=== PATIENT | male | born 1950 | race Caucasian/White ===

== ENCOUNTER → 2024-10-20 10:44 | Outpatient (REF) | payer MEDICARE, BC, SELFPAY ==
[2024-10-20 11:35] LABS: % Basophils 0.8 % (0-2); % Eosinophils 3.6 % (0-6); % Immature Granulocytes 0.3 % (0-0.5); % Lymphocytes 24.9 % (20.5-51.1); % Monocytes 9.4 % (1.7-9.3); Absolute Basophils 0.1 10^3/uL (0-0.2); Absolute Eosinophils 0.3 10^3/uL (0-0.7); Absolute Lymphocytes 1.8 10^3/uL (1.2-3.4); Absolute Monocytes 0.7 10^3/uL (0.1-0.6); Absolute Neutrophils 4.5 10^3/uL (1.4-6.5); Hematocrit 44.2 % (39.0-52.0); Hemoglobin 14.9 g/dL (13.0-18.0); Mean Corp Hgb Conc. 33.7 g/dL (33.0-37.0); Mean Corpuscular Hgb 31.6 pg (27.0-31.0); Mean Corpuscular Volume 93.6 fL (80.0-94.0); Mean Platelet Volume 9.4 fL (7.4-10.4); Nucleated Red Blood Cells % 0 % (-); Platelet Count 238 10^3/uL (130-400); Red Blood Cell Count 4.72 10^6/uL (4.70-6.10); Red Cell Dist. Width 12.5 % (11.5-14.5); White Blood Cell Count 7.3 10^3/uL (4.8-10.8)
[2024-10-20 11:55] LABS: PT 16.5 Sec (11.4-14.6)
[2024-10-20 12:31] LABS: ALT (SGPT) 24 U/L (0-50); AST (SGOT) 28 U/L (17-59); Alkaline Phosphatase 92 U/L (38-126); Blood Urea Nitrogen 15 mg/dl (9-20); Calcium 9.1 mg/dl (8.4-10.2); Carbon Dioxide 29 mmol/L (22-30); Chloride 105 mmol/L (98-107); Glucose 129 mg/dl (70-99); Magnesium 2.1 mg/dl (1.6-2.3); Potassium 4.5 mmol/L (3.5-5.1); Sodium 144 mmol/L (135-145); Total Bilirubin 0.7 mg/dl (0.2-1.3); eGFR > 60.00
== END ==
LOC: SDSPAT 10:44
PROVIDERS: ATTENDING PHYSICIAN Internal Medicine Cardiovascular Disease; FAMILY PHYSICIAN Family Medicine; OTHER PHYSICIAN Internal Medicine Cardiovascular Disease
DX: I48.19 Other persistent atrial fibrillation (principal)
CPT/HCPCS: 36415; 75572; 80053; 83735; 85025; 85610; 86850; 86900; 86901; 93005; Q9967

== ENCOUNTER 2024-11-04 08:16 | Day surgery (SDC) | payer MEDICARE, BC, SELFPAY ==
[2024-10-20 10:57] VITALS: BMI 34.5
--- NOTE | 2024-10-20 12:29 | HPS.HSE ---
Family Physician
-
Family Physician: Luke Galvan
Chief Complaint
-
Persistent atrial fibrillation.
History of Present Illness
The patient is a 74 year old male presenting today for persistent atrial fibrillation. The patient reports symptoms such as chest discomfort, palpitations, worsening of his baseline dyspnea on exertion, and fatigue likely secondary to this
diagnosis. He previously underwent 3 cardioversions and pulmonary vein isolation in 2013 for his arrhythmia. He is currently on pharmacological therapy with Diltiazem and Metoprolol Tartrate. He reports compliance with Eliquis for oral
anticoagulation. He notes that his current symptoms associated with his arrhythmia greatly interfere with his activities of daily living and overall impact his quality of life. He is interested in pursuing pulmonary vein isolation again for more
definitive arrhythmia management. He denies any current complaints today such as chest pain and shortness of breath at rest, nausea, vomiting, diarrhea, lightheadedness, dizziness, cough, sore throat, or fever.
Medical History
Past Medical History
Past Medical History: Reports Other
Additional Past Medical History:
1. Persistent atrial fibrillation, status post cardioversion x3 and pulmonary vein isolation 2012; pharmacological therapy with Diltiazem and Metoprolol Tartrate and oral anticoagulation with Eliquis.
2. PVCs.
3. Hypertension.
4. Hyperlipidemia.
5. Coronary artery disease, status post PCI with stents x4 2000.
6. COPD with reported asthmatic component.
7. Nocturnal hypoxemia without diagnosis of sleep apnea; on 2L supplemental oxygen.
8. Chronic dyspnea on exertion.
9. Non-insulin dependent diabetes.
10. GERD.
11. Colon polyps.
12. Nephrolithiasis.
13. Cerebral artery aneurysm, followed by neurosurgery.
14. Osteoarthritis, status post left total knee arthroplasty 2021.
15. Skin cancer, status post Mohs.
16. History of recurrent UTIs.
17. Anxiety/depression.
18. Obesity, BMI 34.5.
19. Remote history of heavy tobacco abuse.
Past Surgical History: Reports Other
Additional Past Surgical History:
1. Pulmonary vein isolation.
2. Cardioversion x3.
3. PCI with stent x4.
4. Multiple cardiac catheterizations.
5. Left total knee arthroplasty.
6. Left knee meniscus repair.
7. Bilateral carpal tunnel release.
8. Cholecystectomy.
9. Mohs.
10. Tonsillectomy.
11. [place] teeth extraction.
12. Bilateral cataract extraction.
13. Multiple colonoscopies.
14. Multiple endoscopies.
Social History
Tobacco: Former Smoker (He is a former 2 and 1/2 pack per day cigarette smoker who quit tobacco altogether in 2000. )
Alcohol: None
Personal:
Living: Other (He lives with his in a twin style home. )
Family History
Family History: Not pertinent
Allergies / Home Medications
Allergy/Medication List:
Home medications:
1. Albuterol sulfate 2 puffs inhaled every 4 hours as needed.
2. Eliquis 5 mg p.o. twice a day.
3. Cyanocobalamin 1000 mcg p.o. daily.
4. Diltiazem 240 mg p.o. every evening.
5. Escitalopram 10 mg p.o. daily.
6. Fluticasone propionate 2 spray intranasal daily.
7. Lisinopril 20 mg p.o. daily.
8. Lorazepam 20 mg p.o. daily as needed.
9. Metoprolol Tartrate 12.5 mg p.o. twice a day.
10. Pantoprazole 40 mg p.o. daily.
11. Rosuvastatin 20 mg p.o. at bedtime.
12. Ozempic 0.5 mg subcutaneous on Sundays.
Allergies: No known allergies.
Review of Systems
-
A 12 point ROS was completed and negative except as noted: Yes
Physical Exam
Vital Signs
Blood pressure 152/83. Heart rate 68. Respirations 18. Pulse ox 98% on room air.
Height 5 feet, 10.5 inches. Weight 110.5 kg. BMI 34.5.
Physical Exam
General: Well Developed, Well Nourished and No Apparent Distress
HEENT: NormoCephalic, Moist mucous membranes, Atraumatic and PERRLA
Respiratory: Clear
Cardiac: Irregular Rhythm
GI: Soft, Non Tender, Non Distended and Other (Obese. )
Musculoskeletal: No Edema and Normal Gait & Station
Skin: Warm and Dry
Neuro: AO x 3 and Nonfocal/grossly intact
Laboratory Results
-
DIAGNOSTIC STUDIES as of 10/20/2024: White blood cell count 7.3. Hemoglobin 14.9. Platelet count 238,000. PT 16.5. INR 1.3. Sodium 144. Potassium 4.5. BUN 15. Creatinine 1.1. Glucose 129. Calcium 9.1. Magnesium 2.1. AST 28. ALT 24. Albumin 4.0. Type
and screen O positive.
EKG 10/20/2024: Atrial fibrillation with premature ventricular or aberrantly conducted complexes.
Chest CT 10/20/2024: There is no evidence for thrombus in the left atrial appendage. Separate right superior, right inferior, left superior, and left inferior pulmonary veins draining into the left atrium. No CT evidence for supernumerary pulmonary
vein, common ostium, or anomalous pulmonary venous return. Severe calcific atherosclerotic plaque in the coronary arteries. Mild centrilobular emphysema in the right upper lobe.
Echocardiogram 01/27/2024: Technically suboptimal study. Atleast moderate left atrial lodgment with other chamber sizes normal. Normal left and right ventricular systolic function. Indeterminate diastolic filling pattern. Trace to mild mitral and
pulmonic insufficiency. Trace tricuspid regurgitation.
Impression/Plan
-
IMPRESSION/PLAN:
1. Persistent atrial fibrillation: The patient is in need of pulmonary vein isolation with Dr. Greg Fulton on 11/04/2024. The benefits and risks of the procedure have been explained to the patient. The patient understands these risks and wishes to
proceed. He will not be required to undergo a pre-procedural transesophageal echocardiogram as he has been compliant with his home oral anticoagulation. He is aware to continue his Eliquis up until the night prior to his procedure. He will hold his
Metoprolol Tartrate 48 hours prior. He will take no medications the morning of his ablation.
[2024-11-04] VITALS (12 sets, daily range): BP systolic 131–163; BP diastolic 66–98
[2024-11-04 09:08] LABS: Glucose - Point of Care 144 mg/dl (70-99)
[2024-11-04] MEDS: TYLENOL 1000 MG PO (09:22)
[2024-11-04 11:02] LABS: Glucose - Point of Care 117 mg/dl (70-99)
[2024-11-04 11:05] LABS: ACT-LR - POC 321 Seconds (116-155)
[2024-11-04 11:24] LABS: ACT-LR - POC 284 Seconds (116-155)
[2024-11-04 11:47] LABS: ACT-LR - POC 326 Seconds (116-155)
--- NOTE | 2024-11-04 11:52 | ITS.CL.ABL ---
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
Ablation
Procedure Report:
ELECTROPHYSIOLOGY ABLATION STUDY
DATE:: November 04, 2024�����������������������������REFERRING: Dr. Greg Fulton
INDICATION: Longstanding persistent supraventricular tachycardia in the form of atrial fibrillation.��Prior pulmonary vein isolation with Dr. Avila at [facility] [place] in 2012
HISTORY: See H and P.��As above
ANTIARRHYTHMIC DRUG: Diltiazem only
PRE-PROCEDURE LEN: No interatrial thrombus on intracardiac ultrasound
PRESENTING RHYTHM: Atrial fibrillation
'TIME-OUT':��called and confirmed.
SEDATION/ANESTHESIA:��provided via the anesthesia department using general anesthesia (LMA).
INTRAVENOUS/ARTERIAL ACCESS:
Right femoral venous - 8Fr
Left femoral venous - 8 Fr, 6 Fr
[id number] suture to bilateral femoral venous sites
Ultrasound guidance for bilateral femoral vein access was utilized by me to obtain access with demonstration of normal anatomy
CHADS-VASC Score:
HAS-Bled Score
PROCEDURE:
1.��A decapolar CS catheter was placed within the CS for mapping and pacing.��This was also used as the reference catheter for the 3-D map.
2. The intracardiac ultrasound catheter was positioned in the RA to identify the FO for targeting of transseptal puncture, assist��in identification of the pulmonary vein ostia, monitoring pre and post ablation pulmonary vein flow velocities,
monitoring for 'bubble' formation during RF application as a sign of thermal injury,��and to monitor for pericardial effusion during mapping and ablation procedure.���Left atrial size, LV ejection fraction, and pulmonary vein flows were monitored
pre and post ablation procedure. The other valves were inspected and found to be free of significant regurgitation or stenosis.
3.��Half of the calculated heparin bolus was administered prior to the first transeptal puncture.��Transseptal puncture was performed to diagnose RA and LA pressure so that safetey of LA mapping and ablation could be further assessed, and to access
the left atrium and pulmonary veins for mapping and ablation.��This entailed advancing an 16.8 [place] sheath, RF wire, with dilator into the superior vena cava and withdrawing both (monitoring intracardiac ultrasound, fluoroscopy and tip pressure)
with the tip oriented toward the atrial septum.��The fossa ovalis was engaged (indicated by sudden displacement of the sheath tip as well as tenting of the fossa seen on intracardiac ultrasound).��Left atrial access required a pass with the
B[place]rough needle extended.��Left atrial catheter position was confirmed by pressure monitoring (RA mean pressure 4 mm Hg and LA mean presure 14 mm Hg), LA saturation (99%),��as well as fluoroscopy.��The sheath was advanced over the dilator and
positioned in the left atrium.��This procedure was repeated for the Agilis sheath.��The remainder of the calculated heparin bolus was administered and heparin was
infused to maintain ACT at 300 -350 seconds throughout the case.
4.��RA pacing was performed via the proximal decapolar poles and LA pacing was performed via the distal decapolr poles.
5. A quadrapolar catheter was first positioned at the His position for His Bundle recording which was tagged via the 3-D Navex sytem, and then passed to the RVA for RV pacing and recording.
6. The multipolar and Penta spline catheter were placed in each of the LIPV, LSPV, RSPV and the RIPV.��There was reconnection of all 4 pulmonary veins. There were some areas of patchy scarring along the septum of the right pulmonary veins and the
posterior wall in the antrum of the left pulmonary veins.
7.��Next, a 3-D map was created using Navex.���A 3-D reconstructed CT image was compared to the 3-D Navex map to assist in anatomic interpretation, mapping and ablation.��The CT image and the NavX image were fused.
8. Total of 64 lesions were required to achieve entrance and exit block in all 4 pulmonary veins and the posterior wall from roof to floor. Initial pass with olive and basket poses to each of the 4 pulmonary veins and flower pose to the roof
posterior wall and floor of the left atrium. Remapping in sinus rhythm demonstrated continued areas of connection on the roof outs of the left superior pulmonary vein and at the tiffanie of the right superior pulmonary vein. These were addressed in
basket and all of pose leading to durable isolation of the 4 pulmonary veins and the posterior wall. Adenosine at 6 mg and 12 mg was given with the multipolar catheter on the right superior pulmonary vein without acute reconnection during CO
interval prolongation and hyper polarization of cardiac membranes. The patient required a 300 J synchronized cardioversion to restore sinus rhythm after ablation.
Once entrance next block was confirmed EP study demonstrated no other inducible tachyarrhythmias down to atrial refractoriness from the coronary sinus and left atrium. Burst pacing and AV Wenckebach was also performed without inducible arrhythmia.
The patient had normal sinus node recovery time and normal AV node function with AV Wenckebach at 360 ms.
9. Noninducible for arrhythmia as above
TOTAL FLOURO TIME: 20.4 minutes 202 mGy
TOTAL RF DURATION: 0 minutes
REVERSAL OF HEPARIN: 35 mg of protamine, slow IV administration
COMPLICATIONS:
None
Intracardiac US shows no pericardial effusion post ablation.
SUMMARY:��
Complex left atrial mapping and ablation. Reconnection noted at all 4 pulmonary veins from prior procedure in 2012.
Reisolation of all 4 pulmonary veins as well as isolation of the left atrial roof posterior wall and floor. Normal sinus node and AV node function noted.
RECOMMENDATIONS:
1. Ambulate in 4 hours
2. Resume anticoagulation
3.� Consider same-day discharge
4.��Maintain diltiazem but will discontinue metoprolol
Copy to: Dr. Maurisio Fulton
--- NOTE | 2024-11-04 15:45 | W.PN.UPDATE ---
Update Note
Progress Note Update
74 yo WM s/p PVI (Same day). He is having some chest heaviness, which is normal post ablation, EKG SR no ST changes, denies sob, jessica clears, b/l groins c/d/i no HT. He will resume Eliquis tonight. He will stop diltiazem and decrease metoprolol to
daily. Activity restrictions reviewed. HE will f/u Dr. Eduardo in 1 mo. He is for d/c home after 445p if groin stable and voiding.
== END 2024-11-04 18:00 | disposition home or self-care (01) ==
LOC: CATH 08:16
PROVIDERS: ATTENDING PHYSICIAN Internal Medicine Cardiovascular Disease; FAMILY PHYSICIAN Family Medicine
DX: I48.19 Other persistent atrial fibrillation (principal); I47.10 Supraventricular tachycardia, unspecified; I10 Essential (primary) hypertension; E78.5 Hyperlipidemia, unspecified; J44.89 Other specified chronic obstructive pulmonary disease; G47.36 Sleep related hypoventilation in conditions classified elsewhere; R06.09 Other forms of dyspnea; E11.9 Type 2 diabetes mellitus without complications; K21.9 Gastro-esophageal reflux disease without esophagitis; Z87.440 Personal history of urinary (tract) infections; I49.3 Ventricular premature depolarization; N20.0 Calculus of kidney; I67.1 Cerebral aneurysm, nonruptured; F41.9 Anxiety disorder, unspecified; F32.A Depression, unspecified; E66.9 Obesity, unspecified; Z68.34 Body mass index [BMI] 34.0-34.9, adult; I49.8 Other specified cardiac arrhythmias; I25.10 Atherosclerotic heart disease of native coronary artery without angina pectoris; Z85.828 Personal history of other malignant neoplasm of skin; Z90.89 Acquired absence of other organs; Z90.49 Acquired absence of other specified parts of digestive tract; Z86.0100 Personal history of colon polyps, unspecified; Z95.5 Presence of coronary angioplasty implant and graft; M19.90 Unspecified osteoarthritis, unspecified site; Z96.652 Presence of left artificial knee joint; Z87.891 Personal history of nicotine dependence; Z79.01 Long term (current) use of anticoagulants; Z79.899 Other long term (current) drug therapy
CPT/HCPCS: C1732; C1894; C1730; C1769; C1892; C1759; 82962; 85347; 86900; 86901; 93005; 93656; 93657; C1733; C1766; J0153